=== PATIENT | female | born 1935 | race Caucasian/White ===

== ENCOUNTER 2019-08-20 09:57 | Inpatient (IN) | payer MEDICARE, BC ==
[~2019-08-20] VITALS: Ht 165.1 cm; Wt 76.5 kg
--- NOTE | ~2019-08-20 | HEMODYNAMI ---
PATIENT:RORO SAMAYOA MEDICAL RECORD: [id number] : 37 LOCATION:[facility] ADMISSION DATE: 08/20/19 Generatedon:08/21/201913:44 Patient name: RORO SAMAYOA Patient #: [id number] SSN: [id number] : 1935 Date of study: 08/21/2019 Page: Of Hemodynamic Procedure Report Patient Data Patient Demographics Procedure consent was obtained First Name: RORO Gender: Female Last Name: YAO : 1935 [facility] Initial: L Age: 84 year(s) Patient #: [id number] Race: SSN: [id number] Additional ID: [id number] Contact details Address: [address] [place] [address] State: [place] City: [place] Zip code: [address] Past Medical History Allergies: No known allergies Admission Admission Data Admission Date: 08/20/2019 Admission Time: 11:31 Arrival Date: 08/21/2019 Arrival Time: 0:00 Admit Source: Other Insurance Payor: Medicare Room #: D.CV03 [facility] #: [id number] Height (in.): 65 BSA: 1.78 (m2) Height (cm.): 165.1 BMI: 26.01 (kg/m2) Weight (lbs.): 156.31 Weight (kg.): 70.9 Lab Results Lab Result Date: 08/21/2019 Lab Result Time: 0:00 Biochemistry Name Units Result Min Max BUN mg/dl 16 --(---*)-- 7 18 CK-MB ng/ml 3.4 --(---*)-- 0 3.6 Creatinine mg/dl 1 --(--*-)-- 0.6 1.3 eGFR ml/min 56 *-(----)-- 90 120 NONAFRICAN Troponin l ng/ml 0.269 --(----)-* 0 0.06 CBC Name Units Result Min Max Hematocrit % 34 *-(----)-- 42 54 Hemoglobin g/dl 10.7 *-(----)-- 13.5 17.5 Procedure Procedure Types Cath Procedure Diagnostic Procedure [facility] w/Coronaries FFR/IVUS Intra-Coronary IVUS Initial Cardioversion External PCI Procedure Coronary Stent Coronary Stent Initial x2 Hemochron ACT Test Procedure Description Procedure Date Procedure Date: 08/21/2019 Procedure Start Time: 12:49 Procedure End Time: 13:34 Procedure Staff Name Function Brayden Richardson MD Performing Physician Charmaine Rosas RT Monitor Anju Delgado RT Monitor Selene Dominguez RT Scrub Eloise Taylor RN Nurse Giuseppe Pruitt CRNA Additional personnel Procedure Data Cath Procedure Fluoroscopy Diagnostic fluoroscopy Total fluoroscopy Time: time: 10.4 min 10.4 min Diagnostic fluoroscopy Total fluoroscopy dose: dose: 1198 mGy 1198 mGy Contrast Material Contrast Material Type Amount (ml) Isovue 370 185 Entry Location Entry Primary Successful Side Size Upsize Upsize Entry Closure Succes sful Closure Location (Fr) 1 (Fr) 2 (Fr) Remarks Device Remarks Femoral Right 5 Fr 6 Fr Exoseal artery Short Estimated blood loss: 10 ml Diagnostic catheters Device Type Used For End Catheter Placement MULTIPACK Pigtail 5 Fr Procedure catheter MULTIPACK JL 4.0 5Fr Procedure catheter DIAGNOSTIC MPA-2 5Fr Procedure catheter ([id number]) MULTIPACK JL 4.0 5Fr Procedure catheter MULTIPACK 3DRC 5Fr Procedure catheter Procedure Complications No complications Procedure Medications Medication Administration Route Dosage Oxygen etCO2 Nasal cannula 2 l/min Lidocaine 2% added to field 20 Heparin Flush Bag added to field 2 bags (1000units/500ml NS) Refer to Anesthesia Notes for Sedation Medications 0.9% NaCl I.V. 100 ml/hr Heparin Bolus I.V. 4000 units Integrilin (Bolus I.V. 6.8 ml 2mg/ml) Plavix P.O. 600 mg Hemodynamics Rest BSA: 1.78 (m2) O2 Consumption: Estimated: 168.43 (ml/min) O2 Consumption indexed : Estimated:94.62 (ml/min/m) Heart Rate: 84 (bpm) Snapshots Pre Cath Intra NCS Post Cath Vital Signs Time Heart Resp SPO2 etCO2 NIBP (mmHg) Rhythm Pain Sedation Rate (ipm) (%) (mmHg) Status Level (bpm) 12:41:12 75 14 99 0 152/67(126) A-Fib 0 (11) 10(A) , No pain 12:45:32 86 15 100 0 149/88(119) A-Fib 0 (11) 10(A) , No pain 12:49:44 88 15 99 0 125/78(111) A-Fib 0 (11) 10(A) , No pain 12:54:02 90 10 92 0 117/63(97) A-Fib 0 (11) 10(A) , No pain 12:58:12 82 10 97 0 126/80(100) A-Fib 0 (11) 9(A) , No pain 13:02:22 68 11 98 0 121/70(103) A-Fib 0 (11) 9(A) , No pain 13:06:38 88 11 99 0 112/66(90) A-Fib 0 (11) 9(A) , No pain 13:10:52 70 13 99 0 123/61(92) A-Fib 0 (11) 9(A) , No pain 13:16:12 80 13 99 0 130/70(107) A-Fib 0 (11) 9(A) , No pain 13:20:28 83 13 99 0 135/78(103) A-Fib 0 (11) 9(A) , No pain 13:24:52 54 11 98 0 147/67(122) A-Fib 0 (11) 9(A) , No pain 13:29:22 54 12 99 0 132/62(95) A-Fib 0 (11) 9(A) , No pain 13:33:20 52 12 99 0 No Cuff A-Fib 0 (11) 10(A) , No pain Medications Time Medication Route Dose Verified Delivered Reason Notes Effectiveness by by 12:39:56 Oxygen etCO2 2 Brayden Navas used for Nasal l/min Dylan Taylor landscape contractor cannula 12:40:03 Lidocaine 2% added 20ml Brayden Owen for local to vial Dylan Richardson MD anesthetic field 12:40:11 Heparin Flush added 2 Brayden Owen used for Bag to bags Dylan Richardson MD procedure (1000units/500ml field NS) 12:40:16 Refer to Brayden Chin Anesthesia Notes Dylan Pruitt for Sedation CNA PER DIEM Medications 12:40:44 0.9% NaCl I.V. 100 Brayden Navas Per physician ml/hr Dylan Taylor RN 13:05:43 Heparin Bolus I.V. 4000 Brayden Navas for units Dylan Taylor RN anticoagulation 13:07:02 Integrilin I.V. 6.8 Brayden Navas used for (Bolus 2mg/ml) ml Dylan Taylor RN procedure 13:38:04 Plavix P.O. 600 Brayden Navas for mg Dylan Taylor RN antiplatelet therapy Procedure Log Time Note 11:38:15 Informed consent obtained and on chart 11:41:29 Risk of Mortality: 0.2 11:41:35 Risk of blood transfusion: 4.8 11:41:38 Risk of SANTO: 3.3 11:41:42 Stress Test: no; N/A ? 11:41:46 Lab results completed and on chart. 11:42:48 Lab Result : BUN 16 mg/dl 11:42:48 Lab Result : CK-MB 3.4 ng/ml 11:42:48 Lab Result : Creatinine 1 mg/dl 11:42:48 Lab Result : eGFR NONAFRICAN 56 ml/min 11:42:48 Lab Result : Troponin l 0.269 ng/ml 11:42:48 Lab Result : Hemoglobin 10.7 g/dl 11:42:48 Lab Result : Hematocrit 34 % 11:44:21 Patient Height : 65 inches 11:44:25 Patient Weight : 156.31 lbs 11:44:28 Admit Source: Other 11:44:30 Arrival Date: 08/21/2019 12:00:00 AM 11:44:47 Insurance Payor : Medicare 12:08:53 Procedure Status Urgent Heart Cath (IP). 12:08:54 Time tracking: Regular hours (M-F 7:00 - 5:00) 12:08:58 Plan of Care:Hemodynamics will remain stable., Cardiac rhythm will remain stable., Comfort level will be maintained., Respiratory function will remain adequate., Patient/ family verbilizes understanding of procedure., Procedure tolerated without complication., Recovers from procedure without complications.. 12:09:02 H&P Date Dictated: 08/21/2019 New H&P dictated by physician.. 12:10:05 Charmaine Rosas RT(R) sent for patient. Start room use. 12:26:02 Patient received from CVICU to CCL 1 Alert and oriented. Tansferred to table in Supine position. 12:26:04 Warm blankets applied, and jarred hugger turned on for patient comfort. 12:26:04 Correct patient and procedure confirmed by team. 12:26:05 ECG and BP/O2 sat monitors applied to patient. 12:26:06 Pre-procedure instructions explained to patient. 12:26:07 Pre-op teaching completed and patient verbalized understanding. 12:26:09 Family in waiting room. 12:26:11 Patient NPO since Midnight. 12:26:17 Patient allergic to No known allergies 12:28:54 Is the patient allergic to Iodine/contrast media? No. 12:28:57 Was the patient premedicated? No 12:29:01 Is patient on blood thinner?Yes 12:30:09 ACC The patient was administered the following blood thiners within the last 24 hours: Coumadin 12:30:14 Patient diabetic? No. 12:30:18 If diabetic: On Metformin? N/A 12:30:21 Patient not . Patient is over age 55. 12:30:23 ----Pre-sedation anethsthesia assessment.---- 12:30:27 Previous problem with sedation/anesthesia? No ? 12:30:28 Giuseppe Pruitt CRNA present and monitoring patient for TIVA. 12:30:28 Snore? No 12:30:31 Deviated septum? No 12:30:33 Opens mouth fully? Yes 12:30:34 Sleep apnea? No 12:30:34 Sticks out tongue? Yes 12:30:36 Airway obstruction? No ? 12:30:41 Dentures? Yes in tight 12:31:14 IV left wrist D/C'd due to infiltration. 12:31:55 IV started by Giuseppe Pruitt CRNA inright hand with a 22 gauge IV catheter with 0.9% NaCl at KVO. 12:33:39 Patient pain scale 0/10 ?. 12:33:44 Alarms reviewed by R. N. 12:33:44 Sharps counted by scrub and verified by R.N. 12:39:45 Vital chart was started 12:39:56 Oxygen 2 l/min etCO2 Nasal cannula was administered by Eloise Taylor RN; used for procedure; Verbal order read back and verified. 12:40:03 Lidocaine 2% 20ml vial added to field was administered by Brayden Richardson MD; for local anesthetic; Verbal order read back and verified. 12:40:11 Heparin Flush Bag (1000units/500ml NS) 2 bags added to field was administered by Brayden Richardson MD; used for procedure; Verbal order read back and verified. 12:40:16 Refer to Anesthesia Notes for Sedation Medications was administered by Giuseppe Pruitt CRNA; ; Verbal order read back and verified. 12:40:20 PT HAS NOTICEABLE SKIN TEAR ON THE RT GROIN AREA PRIPR TO PROCEDURE 12:40:42 Right groin area was prepped with chlora-prep and draped in sterile fashion 12:40:44 0.9% NaCl 100 ml/hr I.V. was administered by Eloise Taylor RN; Per physician; Verbal order read back and verified. 12:41:36 Pre procedure: right dorsailis pedis pulse 1+ Palpable, but thready & weak; easily obliterated 12:41:49 Full Disclosure recording started 12:41:57 Use device set Femoral Dx 12:42:00 ACIST Syringe (50160) opened to sterile field. 12:42:04 Bag Decanter (2002S) opened to sterile field. 12:42:14 Medline Cath Pack ([id number]) opened to sterile field. 12:42:15 ACIST Hand Control (31750) opened to sterile field. 12:42:16 ACIST Manifold (45275) opened to sterile field. 12:42:18 Tegaderm 4 x 4 (1626W) opened to sterile field. 12:42:20 SHEATH 5FR [place] (TYH145) opened to sterile field. 12:42:21 EMERALD Guide Wire (781-113) opened to sterile field. 12:42:43 Rhythm: sinus rhythm 12:44:48 Baseline sample Acquired. 12:48:00 --------ALL STOP TIME OUT------ 12:48:00 Final Timeout: patient, procedure, and site verified with staff and physician. All members of the team are in agreement. 12:48:03 Right groin site verified by team. 12:48:07 Fire Safety Assessment: A--An alcohol-based skin anteseptic being used preoperatively., C--Open oxygen or nitrous oxide is being used., D--An ESU, laser, or fiber-optic light is being used. 12:48:12 Physical assessment completed. ASA score P 2 - A patient with mild systemic disease as per Brayden Richardson MD. 12:48:17 3a) 45-59 Moderately reduced kidney function. 12:48:21 Maximum allowable contrast dose (3.7 X eGFR X 0.75)155 ml. 12:48:26 Sedation plan: IV Moderate Sedation Medication:Versed, Fentanyl 12:49:29 Procedure started. 12:49:49 Local anesthetic to right femoral artery with Lidocaine 2% by Brayden Richardson MD.INITIAL ACCESS ONLY 12:50:34 A 5 Fr sheath was inserted into the Right Femoral artery 12:51:12 A MULTIPACK Pigtail 5 Fr catheter was advanced over the wire and used for Procedure. 12:51:46 LV gram done using ROMERO 12:51:50 Injector settings: Ml/sec: 5, Volume: 15, 12:52:05 EF : 50 % 12:52:17 Catheter removed. 12:52:29 A MULTIPACK JL 4.0 5Fr catheter was advanced over the wire and used for Procedure. 12:53:32 Catheter removed. 12:54:26 JL4 REMOVED AND 6F ARROW ADVANCED DUE TO PTS ANATOMY. 12:54:39 SHEATH 6FR ARROW 45cm (CL-43050) opened to sterile field. 12:54:53 Sheath upsized to a 6 Fr Short. 12:55:39 Catheter removed. 12:56:43 A DIAGNOSTIC MPA-2 5Fr catheter ([id number]) was advanced over the wire and used for Procedure. 12:57:18 Catheter removed. 12:57:55 UNABLE TO ADVANCE ARROW PROCEEDING WITH DESTINATION. 12:58:08 SHEATH 6FR Destination (RSR01) opened to sterile field. 12:58:25 GLIDE WIRE Super Stiff Angled 260cm (HQ4084) opened to sterile field. 12:59:13 GLIDEWIRE TO USED TO ADVANCE DESTINATION. 12:59:41 A MULTIPACK JL 4.0 5Fr catheter was advanced over the wire and used for Procedure. 13:00:26 LCA angiography performed. 13:01:30 Catheter removed. 13:01:38 A MULTIPACK 3DRC 5Fr catheter was advanced over the wire and used for Procedure. 13:03:00 RCA angiography performed. 13:03:34 Catheter removed. 13:03:35 Proceeding to intervention. 13:04:00 GUIDE 6FR AR 1.0 SH catheter ([id number]) opened to sterile field. 13:04:00 CHOICE PT Extra Support 182cm wire ([id number]) opened to sterile field. 13:04:01 INFLATOR Merit [place] (DB4194) opened to sterile field. 13:04:31 Pre PCI Site: [place] mRCA has 99% stenosis. 13:04:39 6 Fr AR 1 SH guide catheter was inserted over the wire 13:04:46 CHOICE ES 182 wire advanced. 13:05:43 Heparin Bolus 4000 units I.V. was administered by Eloise Taylor RN; for anticoagulation; Verbal order read back and verified. 13:06:12 Wire advanced across lesion. 13:07:02 Integrilin (Bolus 2mg/ml) 6.8 ml I.V. was administered by Eloise Taylor RN; used for procedure; Verbal order read back and verified. 13:08:38 Inflate balloon Inflation number: 1 A EUPHORA 3.0 x 20 Balloon ([id number]) was prepped and advanced across the Mid RCA , then inflated to 17 YANELI for 0:00 (min:sec) . 13:08:50 Inflation number: 2 The EUPHORA 3.0 x 20 Balloon ([id number]) was reinflated across the Mid RCA , to 17 YANELI for 0:00 (min:sec) . 13:09:11 Balloon removed over the wire. 13:11:02 Place stent Inflation Number: 3 A PALOMO RX 3.0 x 38 stent ([id number]) was prepped and advanced across the Mid RCA . The stent was deployed at 21 YANELI for 0:00 (min:sec) . 13:11:24 Stent catheter was removed intact over wire. 13:12:59 Place stent Inflation Number: 1 A PALOMO RX 3.5 x 26 stent ([id number]) was prepped and advanced across the Prox RCA . The stent was deployed at 17 YANELI for 0:00 (min:sec) . 13:13:20 Stent catheter was removed intact over wire. 13:13:38 Wire removed. 13:13:39 Guide catheter removed. 13:14:24 GUIDE 6FR XBLAD 3.5 SH catheter ([id number]) opened to sterile field. 13:14:25 [place] IVUS Catheter (82572W) opened to sterile field. 13:14:47 6 Fr XBLAD 3.5 SH guide catheter was inserted over the wire 13:15:08 CHOICE ES 182 wire advanced. 13:15:19 Wire advanced across lesion. 13:15:35 IVUS catheter advanced over wire. 13:15:39 IVUS pass to LMCA lesion performed. 13:18:15 IVUS catheter removed over wire. 13:18:23 IVUS measurement 69 %. 13:19:31 Place stent Inflation Number: 1 A PALOMO RX 3.5 x 12 stent ([id number]) was prepped and advanced across the LMCA . The stent was deployed at 17 YANELI for 0:00 (min:sec) . 13:19:58 Stent catheter was removed intact over wire. 13:19:59 Wire removed. 13:19:59 Guide catheter removed. 13:20:12 LONG SHEATH CHANGE FOR SHORT SHEATH 13:20:27 Quick Combo opened to sterile field. 13:20:38 ------Cardioversion------ 13:20:39 Quick combo pads placed on patients chest and back. 13:20:43 Defibrillator synced and charged to 275 Joules. 13:22:19 Shock delivered. 13:22:35 Patient cardioverted to sinus bradycardia. 13:22:56 EXOSEAL 6Fr (EX600) opened to sterile field. 13:23:03 Sheath removed intact; hemostasis achieved with Exoseal to the Right Femoral artery. 13:23:19 Fluoroscopy time 10.40 minutes. 13:23:24 Flurop Dose total: 1198 13:23:24 Fluoroscopy dose: 1198 mGy 13:23:29 Dose Area Product 03266 mGy/cm. 13:23:31 Procedure ended.(Physican Out) 13:23:48 Contrast amount:Isovue 370 185ml. 13:23:53 Maximum allowable dose exceeded? Yes. 13:24:05 Sharps counted by scrub and verified by R.N. 13:24:20 ACT drawn and resulted at 332 seconds. (normal therapeutic range 180-240 seconds). 13:24:31 Post-op/insertion site Right Femoral artery dressed using a 4 x 4 and Tegaderm. 13:24:37 Post right femoral artery:stable, soft, clean and dry 13:25:24 Post Procedure Pulses reassessed and unchanged 13:25:29 Post procedure: right dorsailis pedis pulse 1+ Palpable, but thready & weak; easily obliterated. 13:25:33 Post-procedure physical assessment completed. ASA score P 2 - A patient with mild systemic disease as per Brayden Richardson MD. 13:25:39 Post procedure rhythm: sinus bradycardia 13::43 Estimated blood loss: 10 ml 13:25:45 Post procedure instruction explained to patient.Patient verbalizes understanding. 13:25:47 Patient needs reinforcement of post procedure teaching. 13:28:18 LHC Findings: MVD- PCI performed (see procedure note) 13:28:23 Procedure Complication : No complications 13:28:28 Operative report dictated upon procedure completion. 13:28:30 See physician's report for complete and final results. 13:28:34 Report given to CVICU. 13:28:38 Patient transfered to CVICU with Bed. 13:30:21 Procedure type changed to Cath procedure, Diagnostic procedure, LHC, LHC w/Coronaries, FFR/IVUS, Intra-Coronary IVUS Initial, Cardioversion External, PCI procedure, Coronary Stent, Coronary Stent Initial x2, Hemochron ACT Test 13:34:49 Procedure and supply charges have been captured, reviewed, submitted and are correct. 13:34:53 FEMSTOP Gold (P01615) opened to sterile field. 13:34:55 Vital chart was stopped 13:34:58 Procedure ended. 13:34:58 Full Disclosure recording stopped 13:34:59 Femstop placed over the right femoral artery at 175 mmHg. Hemostasis achieved. 13:38:04 Plavix 600 mg P.O. was administered by Eloise Taylor RN; for antiplatelet therapy; Verbal order read back and verified. 13:41:54 ACC-PCI Only Patient was given prescriptions, or instructed by Brayden Richardson MD to start/continue the following medications upon discharge: Plavix 13:43:31 End room use (Document Last) 13:43:44 End room use (Document Last) 13:44:05 End room use (Document Last) Intervention Summary Intervention Notes Time ActionType Lesion and Equipment Used Action# Pressure Duration Attributes 13:08:38 Inflate Mid RCA EUPHORA 3.0 x 1 17 00:00 balloon 20 Balloon ([id number]) 13:08:50 Reinflate Mid RCA EUPHORA 3.0 x 2 17 00:00 balloon 20 Balloon ([id number]) 13:11:02 Place stent Mid RCA PALOMO RX 3.0 x 3 21 00:00 38 stent ([id number]) 13:12:59 Place stent Prox RCA PALOMO RX 3.5 x 1 17 00:00 26 stent ([id number]) 13:19:31 Place stent LMCA PALOMO RX 3.5 x 1 17 00:00 12 stent ([id number]) Device Usage Item Name Manufacture Quantity Catalog Number Hospital Part Current M inimal Lot# / Charge Number Stock Stock Serial# Code ACIST Syringe Acist 1 07449 039652 925834 462836 2 0 (63496) Medical Systems Inc Bag Decanter Microtek 1 2001S 011973 31240 227415 5 (2001S) Medical Inc. Medline Cath Medline 1 [id number] 423391 64143 096470 5 Pack ([id number]) ACIST Hand Acist 1 98912 661926 668617 765214 5 Control Medical (97470) Systems Inc ACIST Manifold Acist 1 22818 579051 365360 451036 5 (45580) Medical Systems Inc Tegaderm 4 x 4 3M 1 1626W 573145 893403 106382 5 (1626W) SHEATH 5FR Terumo 1 ZTJ261 345841 277841 201560 5 [place] (BNS965) EMERALD Guide Cardinal 1 502-455 763182 337577 909550 5 Wire (502-455) Health MULTIPACK Cardinal 1 875547 5 Pigtail 5 Fr Health catheter MULTIPACK JL Cardinal 1 194479 5 4.0 5Fr Health catheter SHEATH 6FR Teleflex 1 CL-11050 586034 557435 777599 5 ARROW 45cm (CL-92499) DIAGNOSTIC Cardinal 1 [id number] 658206 823371 726014 5 MPA-2 5Fr Health catheter (864218M) SHEATH 6FR Terumo 1 RSR01 462875 46543 503914 5 Destination (RSR01) GLIDE WIRE Terumo 1 YA7245 879462 375513 873707 5 Super Stiff Angled 260cm (LP7483) MULTIPACK 3DRC Cardinal 1 813196 5 5Fr catheter Health GUIDE 6FR AR Medtronic 1 [id number] 276573 40311 384060 1 1.0 SH catheter ([id number]) CHOICE PT [place] 1 [id number] 662481 875164 852733 5 Extra Support Scientific 182cm wire ([id number]) INFLATOR Merit Merit 1 ZX3931 247882 930012 985646 1 5 [facility] (DU3863) EUPHORA 3.0 x Medtronic 1 [id number] 031791 789118 431560 5 [id number] 20 Balloon ([id number]) PALOMO RX 3.0 x Medtronic 1 [id number] 026246 9775046 576413 5 [id number] 38 stent ([id number]) PALOMO RX 3.5 x Medtronic 1 [id number] 230314 4043431 728891 5 [id number] 26 stent ([id number]) GUIDE 6FR Cardinal 1 [id number] 973029 095135 932918 3 XBLAD 3.5 SH Health catheter (92352902) [place] 1 [id number] 042961 758843 794953 8 [place] IVUS Catheter (21264L) PALOMO RX 3.5 x Medtronic 1 [id number] 680645 7738646 015069 5 [id number] 12 stent ([id number]) Silatronix 1 26510-911131 823883 554626 592128 5 EXOSEAL 6Fr Cardinal 1 EX600 644510 779546 291269 1 0 (EX600) Health FEMSTOP Gold [facility] [place] 1 A47689 037019 211757 655998 5 ([id number]) Signature Audit [place] Stage Time Signature Unsigned Intra-Procedure 08/21/2019 Anju Delgado 1:43:44 PM RT(R) Intra-Procedure 08/21/2019 Eloise Taylor RN 1:44:05 PM Intra-Procedure 08/21/2019 Brayden Richardson 1:44:19 PM [place] [address] [place] [address]
--- NOTE | ~2019-08-20 | EC ---
PATIENT:RORO SAMAYOA DATE OF SERVICE: 08/20/19 SEX: F MEDICAL RECORD: [id number] DATE OF : 37 LOCATION:[place] [address] AGE OF PATIENT: 84 ADMISSION DATE: 08/20/19 REFERRING PHYSICIAN: INTERPRETING PHYSICIAN: RACHELL RICHARDSON MD ECHOCARDIOGRAM REPORT ECHO CHARGES 4 ECHO COMPLETE Date: 08/20/19 CLINICAL DIAGNOSIS: ATRIAL FIB HX HTN ECHOCARDIOGRAPHIC MEASUREMENTS (adult normal given) AC root (d.<3.7cm) 3.3 cm LV Septum d (<1.2 cm> 1.5 cm Valve Excursion 1.4 cm LV Septum (systole) 1.9 cm Left Atria (s.<4.0cm> 5.3 cm LVPW d(<1.2cm) 1.7 cm RV (d.<2.3cm) 4.1 cm LVPW (sytole) 1.9 cm LV diastole(<5.6CM) 5.1 cm MV E-F(>70mm/sec) cm LV systole 3.6 cm LVOT Diameter 1.9 cm MV exc.(>10mm) 1.8 cm Est.ejection fraction (50-75%) % DOPPLER: LVIT cm/sec A 52.0 cm/sec E 187.0 cm/sec LA cm/sec RVSP 32 mmHg LVOT 165 cm/sec AOP1/2T m/s Asc. Ao 247 cm/sec RVOT 100 cm/sec RA cm/sec PA 146 cm/sec AV Gradient Peak 24.32mmHg AV Mean 15.95mmHg AV Area 1.9 cm MV Gradient Peak 13.05mmHg MV Mean 4.32 mmHg MV Area cm COMMENTS: Furniture Sprayer: 2 CARMELINA KUMAR [employer] Shift Supervisor: 1 Dr. Richardson TAPE# PACS Pericardial Effusion N DATE OF SERVICE: FINDINGS: 1. Left ventricular chamber size is within normal limits. Left ventricular systolic function is preserved at 55%. 2. Left atrium is enlarged at 5.3 cm. Right atrium and right ventricular chamber sizes are as well mildly dilated. 3. Valvular structures: Aortic valve demonstrates mild calcific aortic stenosis, valve area calculates 1.9 cm-squared and there is a gradient of 24 mm across the valve. The remaining valvular structures have normal structure and ECHOCARDIOGRAM REPORT [id number] RORO SAMAYOA motion. 4. Doppler interrogation elsewise reveals severe mitral regurgitation, moderate tricuspid regurgitation, no other valvular insufficiency or stenosis. Pulmonary systolic pressure estimated at 32 mmHg. 5. No evidence of pericardial effusion or left ventricular thrombus. TRANSINT:[id number] Voice Confirmation ID: [id number] DOCUMENT ID: [id number] RACHELL RICHARDSON MD CC: [id number] DICTATION DATE: 08/21/19 1338 WASHER HAND: 08/21/19 2210 ADM IN [place] [address] [place] [address]
--- NOTE | ~2019-08-20 | HP ---
PATIENT: RORO DAMON MEDICAL RECORD: [id number] ACCOUNT: [id number] LOCATION:[address] : 37 ADMISSION DATE: 08/20/19 PCP: TYSON DESAI HISTORY AND PHYSICAL EXAMINATION DIAGNOSES: 1. Non-Q-wave myocardial infarction. 2. Coronary artery disease. 3. New-onset atrial fibrillation. 4. Shortness breath, dyspnea on exertion. 5. Valvular heart disease, aortic valve replacement. 6. Coumadin anticoagulation. 7. Hypertension. HISTORY OF PRESENT ILLNESS: Mrs. Damon presents with shortness of breath and chest pressure. She had this on Saturday, only lasted approximately half hour, but again she had this morning, it lasted longer, but went away. She had palpitation, tachycardia and shortness of breath, dyspnea on exertion with chest pressure today starting at 2:30 in the morning that was very bad. She went to [facility], was found to be in new-onset atrial fibrillation. They attempted cardioversion, she did not convert. She was sent here for higher level of care, troponin is now positive. She is not having palpitations or symptoms at this time of chest pressure. She is having the continued shortness of breath. She is in atrial fibrillation. She was initially with heart rates in the 130 to 150 range. She is now on a Cardizem drip and her heart rate is in the 90 range. Her EKG is with no acute ST-T abnormalities. Her INR is 4 from the Coumadin. PHYSICAL EXAMINATION: CONSTITUTIONAL/GENERAL APPEARANCE: Well nourished, well developed, appears stated age. EYES: Lids and conjunctivae noninjected. No discharge. No pallor. ENT: Lips within normal limit. No cyanosis. No pallor. NECK: Carotid arteries, bilateral normal upstroke. No bruits. No thrills. No jugular venous pressure or distention. CERVICAL LYMPH NODES: Nontender. Nonenlarged. THYROID: Not enlarged. No nodules. CARDIOVASCULAR: Precordial exam, nondisplaced. No heaves or pericardial thrills. Rate and rhythm, regular. Heart sounds, normal S1, normal S2. No S3, no gallop, no rub. Systolic murmur, not heard. Diastolic murmur, not heard. RESPIRATORY: Respiratory effort, unlabored. Normal curvature. No thoracic deformity. No chest wall tenderness. Percussion, resonant. Auscultation, clear. No wheezes, no rales, no rhonchi. ABDOMEN: Soft, nondistended, nontender. No abdominal pain, no vomiting and normal appetite. MUSCULOSKELETAL: No joint tenderness, normal gait, normal tone. SKIN: Warm and dry. OVERALL IMPRESSION: Non-Q-wave myocardial infarction, new-onset atrial fibrillation. At this time, we will reverse her Coumadin with vitamin K and FFP, recheck an INR in the morning. Proceed with coronary angiography and cardioversion. TRANSINT:[id number] Voice Confirmation ID: [id number] DOCUMENT ID: [id number] HISTORY AND PHYSICAL [id number] RORO DAMON JEFFREY MD CC: [id number] DICTATION DATE: 08/20/19 1206 LOCAL COMPANY TANKER DRIVER: 08/20/19 1337 ADM IN [facility] [address] [place] [address]
--- NOTE | ~2019-08-20 | DS ---
PATIENT:RORO DAMON :37 MEDICAL RECORD: [id number] DISCHARGE SUMMARY ADMISSION DATE: 08/20/19 DISCHARGE DATE: 08/22/19 DATE OF DISCHARGE: 08/22/2019 DISCHARGE DIAGNOSES: 1. Non-Q-wave myocardial infarction. 2. Percutaneous transluminal coronary angioplasty and stent of the right coronary artery and left main this admission. 3. Paroxysmal atrial fibrillation. 4. Aortic valve replacement. HOSPITAL COURSE: Ms. Damon presents with new-onset atrial fibrillation and angina, non-Q-wave myocardial infarction, underwent cardiac catheterization revealing significant disease of the left main and RCA, underwent successful PTCA and stent of both territories, was discharged home with the addition of Plavix and amiodarone to her medical regimen. She was in sinus rhythm when discharged. Will follow up with [facility] in 1 month and she will resume her Coumadin as she was previously on. TRANSINT:[id number] Voice Confirmation ID: [id number] DOCUMENT ID: [id number] RACHELL PUGH MD CC: [id number] DICTATION DATE: 08/22/19 1028 COACH MECHANIC: 08/22/19 1626 DIS IN 08/22/[address] [facility] [address] [place] [address]
--- NOTE | ~2019-08-20 | OP ---
PATIENT NAME: RORO SAMAYOA MEDICAL RECORD: [id number] :37 LOCATION:D.CVI D.CV03 ADMISSION DATE:08/20/19 SURGEON: RACHELL PUGH MD DATE OF OPERATION: 08/21/2019 PROCEDURES: 1. DC cardioversion. 2. PTCA and stent left main. 3. PTCA and stent RCA. 4. Intravascular ultrasound, left main. 5. Left heart catheterization. 6. Selective coronary angiography. 7. Left ventriculogram. INDICATION: Non-Q-wave myocardial infarction. DESCRIPTION OF PROCEDURE: After informed consent was obtained and after a detailed description of the risks, benefits as well as alternative therapies, the patient elected to proceed with angiogram and angioplasty. The right femoral area was prepped and draped in normal sterile fashion. Right femoral artery was cannulated via modified Seldinger technique with placement of 6-Icelandic sheath. All catheters exchanged through this sheath. FINDINGS: Left ventriculogram performed in standard 30-degree ROMERO view, reveals good cardiac wall motion, ejection fraction 50% to 55%. SELECTIVE CORONARY ANGIOGRAPHY: 1. Left main is with greater than 85% stenosis confirmed by intravascular ultrasound. 2. Left anterior descending has [id number] irregularities but no flow-limiting stenosis. 3. The left circumflex has [id number]-[id number] irregularities but no flow-limiting stenosis. 4. Right coronary has 80% stenosis at the ostium followed by 95% stenosis in the mid vessel. PTCA AND STENT OF THE RCA: Stents used were 3.0 x 38 and 3.5 x 26, both Ameya stents. Result was 0% residual stenosis. PTCA AND STENT OF THE LEFT MAIN: The stent used was a 3.5 x 12 mm Madison. Result was 0% residual stenosis. IV conscious sedation was per anesthesia. Continuous heart rate, O2 saturation, blood pressure monitoring all undertaken, all of which remains stable. She received 1 shock at 275 joules restoring sinus rhythm. OVERALL IMPRESSION: Successful percutaneous transluminal coronary angioplasty and stent of RCA and left main and successful DC cardioversion. TRANSINT:[id number] Voice Confirmation ID: [id number] DOCUMENT ID: [id number] OPERATIVE REPORT [id number] RORO SAMAYOA RACHELL PUGH MD CC: [id number] DICTATION DATE: 08/21/19 1331 NETWORK SUPPORT TECHNICIAN: 08/21/19 2232 ADM IN [facility] [address] [facility] [place] [address]
--- NOTE | 2019-08-20 10:07 | NUR ---
PIV X 2 STARTED PER [facility].
[2019-08-20] MEDS ORDERED: HYDROCODON-ACE1 EA10 PO (10:09)
[2019-08-20] MEDS ORDERED: TIROSINT25 MCG PO (10:09)
[2019-08-20] MEDS ORDERED: VITAMIN C500 M1 PO ×2 (10:09→22:44)
[2019-08-20] MEDS ORDERED: COZAAR100 MG PO ×2 (10:10→22:42)
[2019-08-20] MEDS ORDERED: MULTI-DAY VITAM1 TAB PO ×2 (10:10→22:46)
[2019-08-20] MEDS ORDERED: CHONDROITIN/GLUCOSAM (10:11)
[2019-08-20] MEDS ORDERED: OS-CAL500 MG PO (10:12)
[2019-08-20] MEDS ORDERED: LIPITOR40 MG PO (10:13)
[2019-08-20] MEDS ORDERED: COUMADIN7.5 MG PO ×2 (10:13→22:39)
[2019-08-20] MEDS ORDERED: COUMADIN5 MG PO ×2 (10:14→22:38)
[2019-08-20] MEDS ORDERED: VITAMIN D31000 UNIT PO ×2 (10:14→22:45)
[2019-08-20] MEDS ORDERED: ZOLOFT100 MG PO ×2 (10:14→22:42)
[2019-08-20] MEDS ORDERED: FISH OIL 1,0001 CA1 PO ×2 (10:14→22:44)
[2019-08-20] MEDS ORDERED: MIRALAX17 GM PO (10:15)
[2019-08-20] MEDS ORDERED: NITROQUICK0.4 MG SL (10:15)
[2019-08-20] MEDS ORDERED: THERALITH XR T1 EACH PO (10:15)
[2019-08-20] MEDS ORDERED: CILOSTAZOL50 MG (10:16)
[2019-08-20 10:32] VITALS: BP 143/90
[2019-08-20 11:00] VITALS: BP 146/92
[2019-08-20 11:27] LABS: CALC OSMOLALITY 284 mosm/kg (275-300); CALCIUM 9.1 mg/dL (8.5-10.1); CARBON DIOXIDE 27.8 mmol/L (21.0-32.0); CHLORIDE - SERUM 106 mmol/L (98-107); GLUCOSE 154 mg/dL (74-106); POTASSIUM - SERUM 4.1 mmol/L (3.5-5.1); SODIUM 141 mmol/L (136-145); UREA NITROGEN 16 mg/dL (7-18); eGFR NON AFRICAN AMERICAN 56 mL/min (90-120)
[2019-08-20 11:28] LABS: INR 3.14 (0.85-1.17); PROTIME 31.5 SECONDS (11.6-15.0)
[2019-08-20 11:29] LABS: BASOPHILS 0.2 % (0-2); EOSINOPHILS 0 % (0-7); HEMOGLOBIN 10.7 g/dL (12-16); IMMATURE GRANULOCYTES 0.2 % (0-5); LYMPHOCYTES 4.7 % (15-50); MCH 29.6 pg (26.0-34.0); MCHC 31.5 g/dL (31.0-37.0); MCV 94.2 fL (80.0-100.0); MEAN PLATELET VOLUME 9.4 fL (7.4-10.4); MONOCYTES 1.4 % (2-11); NEUTROPHILS 93.5 % (40-80); PLATELET COUNT 202 10x3/uL (130-400); RBC 3.61 10x6/uL (4.00-5.40); RDW 13.8 % (11.5-14.5); WBC 6.6 10x3/uL (4.8-10.8)
[2019-08-20 11:35] VITALS: BP 156/97
[2019-08-20 11:48] LABS: ALBUMIN 3.5 g/dL (3.4-5.0); ALKALINE PHOSPHATASE 69 U/L (46-116); ALT (SGPT) 110 U/L (10-68); BILIRUBIN - TOTAL 0.59 mg/dL (0.2-1.3); CKMB 3.4 U/L (0.0-3.6); CREATINE KINASE 50 UL (21-215); PROTEIN - SERUM 6.9 g/dL (6.4-8.2); T4 THYROXIN - FREE 1.05 ng/dL (0.76-1.46); THYROID STIMULATING HORMONE 0.55 uIU/mL (0.36-3.74)
[2019-08-20 11:50] LABS: TROPONIN-I 0.269 ng/mL (0.000-0.060)
--- NOTE | 2019-08-20 11:50 | NUR ---
LAURITA AND DR. PUGH INFORMED OF ELEVATED TROPONIN 0.269
--- NOTE | 2019-08-20 12:55 | MORECARE ---
CASE MANAGEMENT DISCHARGE SUMMARY PATIENT: RORO SAMAYOA UNIT: [id number] ADM DATE: 08/20/19 AGE: 84 : 37 SEX: F ROOM/BED: D.2390 AUTHOR: COTY,DOC PHYSICIAN: REFERRING PHYSICIAN: RACHELL PUGH MD DATE OF SERVICE: 08/20/19 Discharge Plan Patient Name: RORO SAMAYOA Facility: [facility]:[place] : 1935 Planned Disposition: Home Anticipated Discharge Date: 08/24/19 Discharge Date: Expected LOS: 4 Initial Reviewer: [email or web address] Initial Review Date: 08/20/2019 Generated: 08/20/19 1:54 pm DCP- Discharge Planning Updated by [email or web address]: Desi Gonzalez on 08/20/19 11:[address] DC PLAN: Return home alone w/ resumption of [facility]. ANTICIPATED DC NEEDS: Resumption of [facility]. CM met with patient to complete initial dc planning assessment. CM educated patient on the CM role and verbal consent given by patient to complete assessment. CM verified patient's address, phone number, and emergency contact phone numbers. Patient lives at home alone. Patient currently has [facility] [place] and wishes to resume at discharge. JULIO CÉSAR form signed by patient for resumption of [facility]. Signed form placed in chart and signed form given to patient. At discharge patient plans to return and feels this is a safe discharge. Patient denied further known discharge needs at this time. Transportation provider at discharge will be her daughter. CM will continue to follow and will assist as needed with dc plans/needs. Desi Gonzalez RN, [facility] DCPIA - Discharge Planning Initial Assessment Updated by [email or web address]: Desi Gonzalez on 08/20/19 12:52 pm * Is the patient Alert and Oriented? Yes * How many steps to enter\exit or inside your home? * PCP Dr. White in [place] * Pharmacy [facility] [place] * Preadmission Environment Home Alone * ADLs Independent * Equipment Cane Glucometer Rolling Walker * Other Equipment BP machine INR Machine * Verbal permission to speak to the caregivers and representatives has been obtained from the patient. Yes * Community resources currently utilized Home Health * Please name any agencies selected above. [facility] [place] * Additional services required to return to the preadmission environment? No * Can the patient safely return to the preadmission environment? Yes * Has this patient been hospitalized within the prior 30 days at any hospital? No Patient Name: RORO SAMAYOA Page [id number] at 1255 All edits/amendments must be made on the electronic document DICTATION DATE: 08/20/19 125 HOBBING MACHINE OPERATOR: MIGUELITO 08/20/19 1254 RPT#: [id number] DC DATE: STATUS: ADM IN [facility] [address] [place] [address] END OF REPORT
--- NOTE | 2019-08-20 13:11 | NUR ---
RECIVED FROM ER. TO ROOM 2124. ADMIT ASSESSMENT PER RN
[2019-08-20 13:42] VITALS: BP 157/92; Ht 165.1 cm; Wt 76.5 kg
--- NOTE | 2019-08-20 13:55 | NUR ---
ASSESSMENT COMPLETE PT AAOX4 RESP SOB SKIN W/D COLOR WNL TELEMETRY UCAF RATE 105 SALINE LOCK INTACT TO LFA WITH OCCLUSIVE DRSG SITE FREE OF REDNESS OR EDEMA
[2019-08-20 14:04] VITALS: BP 157/92
[2019-08-20 17:43] VITALS: BP 150/84
--- NOTE | 2019-08-20 20:08 | NUR ---
SPOKE WITH DR PUGH, ORDER CLARIFICATION, GIVEN PT BOTH IV AMIODARONE AND PO AMIODERONE.
--- NOTE | 2019-08-20 20:29 | NUR ---
SPOKE WITH THE BLOOD BANK TO SEE IF PTS OTHER 2 UNITS OF FFP WERE READY TO BE GIVEN, THIS NURSE WAS INFORMED THAT THE BLOOD BANK WAS TOLD THAT THE DAY SHIFT NURSE WOULD BE CALLING THEM BACK TO LET THEM KNOW IF THEY STILL NEEDED THE OTHER 2 UNITS AND THAT THEY HAD NOT BEEN NOTIFIED YET. THIS NURSE INFORMED THEM THAT YES, I HAD JUST SPOKE WITH DR PUGH AND DR PUGH WANTS ALL 4 UNITS GIVEN. BB, THEN STATED THAT THEY WILL GET THE OTHER 2 UNITS OF FFP UNTHAWED.
--- NOTE | 2019-08-20 20:47 | NUR ---
IV TO RIGHT WIRST LEAKING, IV CATH REMOVED, TIP INTACT. PIV RESITED TO INNER LEFT FOREARM, 20 GUAGE, SECOND ATTEMPT. PT TOLERATED WELL.
--- NOTE | 2019-08-20 21:22 | NUR ---
HS MEDS GIVEN WITH FRESH ICE WATER. OFFERED PT BATH, PT DECLINED AT THIS TIME, PT STATED THAT SHE WANTS TO WAIT UNTIL ITS TIME TO GET READY FOR SURGERY.
[2019-08-20] MEDS ORDERED: SENNA LAXATIVE8.6 MG PO (21:27)
--- NOTE | 2019-08-20 22:20 | NUR ---
3RD UNIT OF FFP INFUSING, ( 1ST UNIT TO BE HUNG BY THIS NURSE, AFTER 2 HAD BEEN GIVEN PREVIOUSLY ON DAY SHIFT) VITALS STABLE.
[2019-08-20] MEDS ORDERED: NORMODYNE / TR100 MG PO (22:27)
[2019-08-20] MEDS ORDERED: SYNTHROID25 MCG PO (22:39)
[2019-08-20] MEDS ORDERED: LIPITOR10 MG PO (22:41)
[2019-08-20] MEDS ORDERED: TRAZODONE HCL150 MG PO (22:43)
[2019-08-20] MEDS ORDERED: CALCIUM 600 +1 EAC3 PO (22:46)
[2019-08-20] MEDS ORDERED: GLUCOSAMINE HC500 MG PO (22:46)
--- NOTE | 2019-08-20 22:50 | NUR ---
FOURTH UNIT FFP INFUSING ( 2ND OF 2 UNITS HUNG BY THIS NURSE). BP 158/90, ELEVATED BP CALLED TO DR PUGH, ORDERS GIVEN TO RESTART PTS HOME DOSE OF COREG AND LABETALOL.
--- NOTE | 2019-08-20 23:38 | NUR ---
PTS DAUGHTER AT NURSES DESK, PT SOB, RESPERATIONS LABORED. 02 SATS 82% ON 4 LITERS. RAPID RESPONSE CALLED.
--- NOTE | 2019-08-20 23:50 | NUR ---
DR. PUGH NOTIFIED OF PATIENT CONDITION. NEW ORDERS RECEIVED TO MOVE TO ICU, GIVEN LASIX 60MG IVP, AND A/A UDRAFT IF NEEDED.
[2019-08-21] VITALS (55 sets, daily range): BP systolic 111–193; BP diastolic 38–171
--- NOTE | 2019-08-21 00:16 | NUR ---
REPORT GIVEN TO JONELLE LAZCANO, PT TRANSFERRED BY BED TO ICU.
--- NOTE | 2019-08-21 00:30 | NUR ---
RECEIVED PT FROM [address] STAFF. PT ALERT AND ORIENTED. AFIB ON MONITOR, RATE IN 120'S. PT SOB, RR LABORED, STATES SHE IS HAVING DIFFICULTY BREATHING. O2 SAT 100 ON 9 L HIGH FLOW NC. B/P 166/112. WILL MONITOR.
--- NOTE | 2019-08-21 01:35 | NUR ---
PT RECIEVED VIA BED FROM ICU. AWAKE AND ALERT. AUDIBLE WHEEZING. VOIDED PRIOR TO GETTING INTO BED. MONITOR EQUIP ESTABLISHED. CONTROLLED AFIB PER CM. AMIODARONE GTT 0.5 MG/MIN THROUGH PIV. DAUGHTER AT BEDSIDE.
[2019-08-21 05:04] LABS: BASOPHILS 0.1 % (0-2); EOSINOPHILS 0.4 % (0-7); HEMATOCRIT 30.4 % (36.0-48.0); HEMOGLOBIN 9.4 g/dL (12-16); IMMATURE GRANULOCYTES 0.3 % (0-5); LYMPHOCYTES 10.2 % (15-50); MCH 29.7 pg (26.0-34.0); MCHC 30.9 g/dL (31.0-37.0); MCV 95.9 fL (80.0-100.0); MEAN PLATELET VOLUME 9.7 fL (7.4-10.4); MONOCYTES 13.3 % (2-11); NEUTROPHILS 75.7 % (40-80); PLATELET COUNT 211 10x3/uL (130-400); RBC 3.17 10x6/uL (4.00-5.40); RDW 14.1 % (11.5-14.5); WBC 7.4 10x3/uL (4.8-10.8)
[2019-08-21 05:28] LABS: INR 1.79 (0.85-1.17); PROTIME 20.2 SECONDS (11.6-15.0)
[2019-08-21 05:38] LABS: ANION GAP 11.8 mmol/L (8-16); CALCIUM 8.6 mg/dL (8.5-10.1); CARBON DIOXIDE 27.9 mmol/L (21.0-32.0); POTASSIUM - SERUM 3.7 mmol/L (3.5-5.1)
[2019-08-21 05:50] LABS: CREATININE - SERUM 1.4 mg/dL (0.6-1.3)
--- NOTE | 2019-08-21 06:50 | NUR ---
DR PUGH CALLED AND NOTIFIED OF PTS INCREASEING SOB AND HTN. NEW ORDERS RECIEVED.
--- NOTE | 2019-08-21 07:00 | NUR ---
RECEIVED BEDSIDE REPORT AND ASSUMED CARE OF PATIENT. PATIENT ALERT AND ORIENTED X 4, DAUGHTER AT BEDSIDE. PATIENT WITH 3-5 WORD DYSPNEA, SPO2 - 100% ON 4 LPM VIA NC. AUDIBLE WHEEZES NOTED WHEN ENTERING THE ROOM, ON ASCULTATION EXPIRATORY WHEEZES NOTED. CM - A-FIB RATE 100S. FONTENOT CATH IN PLACE WITH CLEAR YELLOW UOP NOTED. VSS. HEAD TO TOE ASSESSMENT COMPLETED.
--- NOTE | 2019-08-21 09:18 | NUR ---
PATIENT BREATHING MUCH EASIER NOW, NO AUDIBLE WHEEZES AND RR - 22, HR - 78.
--- NOTE | 2019-08-21 09:58 | NUR ---
08/26 FFP INFUSING, VSS.
--- NOTE | 2019-08-21 10:21 | NUR ---
08/26 UNIT OF FFP INFUSING PATIENT TOLERATING WELL. DAUGHTER AT BEDSIDE. VSS.
--- NOTE | 2019-08-21 10:58 | NUR ---
REASSESSMENT COMPLETETED. VSS. FFP INFUSING WITH NO S/S OF TRANSFUSION REACTION. PATEINT WITH EXPIRATORY WHEEZES, RR 18, NO SOB NOTED. CHG BATH GIVEN BY DAUGHTER ASSISTING PATIENT.
--- NOTE | 2019-08-21 11:00 | NUR ---
FFP INFUSION COMPLETE. VSS. NO S/S OF TRANSFUSION REACTION.
--- NOTE | 2019-08-21 11:37 | NUR ---
PREOP MEDS GIVEN PER MAR FOR DENTAL HYGIENE TEACHER.
--- NOTE | 2019-08-21 12:26 | NUR ---
PATIENT TO BUSINESS MANAGEMENT PROFESSOR. VSS.
--- NOTE | 2019-08-21 14:02 | NUR ---
PATIENT BACK FROM TANK TRUCK LOADER, RECEIVED TWO STENTS TO RCA AND ONE STENT TO LEFT MAIN, 6 FR EXOSEAL TO RIGHT GROIN WITH FEMSTOP IN PLACE, DISTAL PULSE PRESENT, FOOT PINK AND WARM. NO BLEEDING NOTED TO RIGHT GROIN. PATIENT ALERT AND ORIENTED X 4, IV TO RIGHT HAND INFUSING AMIODARONE AT 0.5 MG/HR AND NS AT 100 CC/HR. FONTENOT CATH WITH YELLOW UOP NOTED. CM - SB RATE OF 56. BBS WITH EXPIRATORY WHEEZE NOTED, FIO2 98% ON NC AT 4 LPM.
--- NOTE | 2019-08-21 14:15 | NUR ---
RIGHT GROIN SITE WITH NO BLLEDING OR HEMATOMA, FEM STOP IN PLACE. DP PULSE +1.
--- NOTE | 2019-08-21 14:38 | NUR ---
RIGHT GROIN WITH NO BLEEDING OR HEMATOMA, FEMSTOP IN PLACE, PRESSURE DECREASED. DP PULSE +1.
--- NOTE | 2019-08-21 14:45 | NUR ---
RIGHT GROIN SITE WITH NO BLEEDING OR HEMATOMA, FEMSTOP IN PLACE, PRESSURE DECREASED. DP PULSE RIGHT +1. VSS.
--- NOTE | 2019-08-21 14:58 | NUR ---
REASSESSMENT COMPLETED. VSS. RIGHT GROIN SITE WITH NO BLEEDING OR HEMATOMA, FEMSTOP IN PLACE, PRESSURE DECREASED. RIGHT DP PULSE +1.
--- NOTE | 2019-08-21 15:22 | NUR ---
RIGHT GROIN SITE WITH NO HEMATOMA OR BLEEDING NOTED. FEMSTOP PRESSURE RELEASED, IN PLACE WILL MONITOR. VSS.
--- NOTE | 2019-08-21 15:51 | NUR ---
VSS. RIGHT GROIN SITE WITH NO HEMATOMA OR BLEEDING NOTED. DP PULSE +2.
--- NOTE | 2019-08-21 16:23 | NUR ---
PATIENT RESTING QUIETLY, VSS. RIGHT GROIN SITE WITH NO BLEEDING AND NO HEMATOMA.
--- NOTE | 2019-08-21 19:15 | NUR ---
REPORT REC'D AND CARE ASSUMED, REC'D PT RESTING IN BED ON O2 @ 4LITERS , AWAKE, ALERT, AND ORIENTED, DAUGHTERS AT BS, RIGHT FOREARM PIV WITH NS @ 100CC/HR, LEFT HAND PIV PATENT SALINE LOCKED, RIGHT GROIN DRSG CDI, NO BLEEDING OR HEMATOMA, SMALL BRUISE NOTED, PPP, PT REPORTS PAIN PILL "HELPED", DENIES NEEDS, SR UP X 2, CALL LIGHT IN REACH.
--- NOTE | 2019-08-21 20:50 | NUR ---
EVENING MEDS GIVEN ORDERED, PT UNCOMFORTABLE IN BED, PT ASSISTED TO REPOSITION ONTO LEFT SIDE SUPPORTED WITH PILLOW, PT DENIES PAIN OR OTHER NEEDS.
--- NOTE | 2019-08-21 23:00 | NUR ---
REASSESSMENT COMPLETED, PT RESTING WITH EYES CLOSED, RESP EVEN AND UNLABORED, VSS, RIGHT GROIN DRSG CDI, NO BLEEDING OR HEMATOMA, WILL CONT TO MONITOR CLOSELY FOR CHANGES.
--- NOTE | 2019-08-21 23:45 | NUR ---
PT ASSISTED UP TO BSC, CALL LIGHT IN REACH.
[2019-08-22] VITALS (10 sets, daily range): BP systolic 110–192; BP diastolic 39–113
--- NOTE | 2019-08-22 00:05 | NUR ---
PT ASSISTED BACK TO BED AND UP IN BED FOR COMFORT, PT COMPLAINS OF "HURT ALL OVER", NORCO PROVIDED AT THIS TIME, RIGHT HAND PIV LEAKING AROUND SITE, DC'D WITH CATH TIP INTACT, PARTIAL LINEN CHANGE PROVIDED, PT DENIES FURTHER NEEDS, DAUGHTER REMAINS AT BS.
--- NOTE | 2019-08-22 02:30 | NUR ---
NO CHANGES IN STATUS, VSS, PT RESTING IN BED EYES CLOSED, RESP EVEN AND UNLABORED.
--- NOTE | 2019-08-22 04:00 | NUR ---
PT REPOSITIONED UP IN BED, PT REQUESTING COFFEE, COFFEE PROVIDED, DAUGHTERS AT BS, PT DENIES FURTHER NEEDS.
--- NOTE | 2019-08-22 04:45 | NUR ---
PT ASSISTED OVER TO BSC, PT STATES " I THINK I NEED TO HAVE A BM", CALL LIGHT IN REACH.
--- NOTE | 2019-08-22 05:05 | NUR ---
PT ASSISTED BACK TO BED, DENIES DIZZINESS WITH RELOCATION, RIGHT GROIN DRSG CDI, NO BLEEDING OR HEMATOMA.
--- NOTE | 2019-08-22 09:43 | NUR ---
PT UP TO CHAIR FOR BREAKFAST. FAMILY AT BS. RT GROIN DSNG WITH SM AMT BLOODY DRAINAGE. DSNG CHANGED. NO ACTIVE BLEEDING NOTED. NO HEMATOMA.
--- NOTE | 2019-08-22 10:56 | NUR ---
DISCHARGED BY DR PUGH-PT ABLE TO STATE FOLLOW UP;APPT IN 2ND WEEK OF SEPTEMBER=L AC REMOVED WITH TIP INTACT-FONTENOT CATH REMOVED PER PROTOCOL-O2 TURNED OFF AND SAT REMAINS ON TO MONITOR SAME-DAUGHTER AT BEDSIDE DISCHARGE INSTRUCTION GIVEN IF PT DOES NOT URINATE BY 6;00 PM TO TAKE TO NEAREST ER FOR BLADDER SCAN OR POSSIBLE RECATHERIZAION-SR ON MONITOR-R GROIN SOFT TO TOUCH-ASSISTED TO BSC CHAIR FOR PT STATED BM-NOTED SLIGHT BALANCE ISSUE-STATED HAS WALKER AT HOME AND USES IT
--- NOTE | 2019-08-22 11:44 | NUR ---
PT DC WITH HER DAUGHTERS. DC INSTRUCTIONS GIVEN AND MEDS CALLED TO PHARMACY. DAUGHTERS VERBILIZE UNDERSTANDING OF DC INSTRUCTIONS.
--- NOTE | 2019-08-24 10:05 | MORECARE ---
CASE MANAGEMENT DISCHARGE SUMMARY PATIENT: RORO SAMAYOA UNIT: [id number] ADM DATE: 08/20/19 AGE: 84 : 36 SEX: F ROOM/BED: D.CV03 AUTHOR: COTY,DOC PHYSICIAN: REFERRING PHYSICIAN: RACHELL PUGH MD DATE OF SERVICE: 08/24/19 Discharge Plan Patient Name: RORO SAMAYOA Facility: [facility]:[place] : 1935 Planned Disposition: Home Anticipated Discharge Date: 08/24/19 Discharge Date: 08/22/2019 Expected LOS: 4 Initial Reviewer: [email or web address] Initial Review Date: 08/20/2019 Generated: 08/24/19 11:05 am DCP- Discharge Planning Updated by [email or web address]: Desi Gonzalez on 08/20/19 11:[address] DC PLAN: Return home alone w/ resumption of [facility]. ANTICIPATED DC NEEDS: Resumption of [facility]. CM met with patient to complete initial dc planning assessment. CM educated patient on the CM role and verbal consent given by patient to complete assessment. CM verified patient's address, phone number, and emergency contact phone numbers. Patient lives at home alone. Patient currently has [facility] and wishes to resume at discharge. JULIO CÉSAR form signed by patient for resumption of [facility]. Signed form placed in chart and signed form given to patient. At discharge patient plans to return and feels this is a safe discharge. Patient denied further known discharge needs at this time. Transportation provider at discharge will be her daughter. CM will continue to follow and will assist as needed with dc plans/needs. Desi Gonzalez RN, [facility] DCPIA - Discharge Planning Initial Assessment Updated by [email or web address]: Desi Gonzalez on 08/20/19 12:52 pm * Is the patient Alert and Oriented? Yes * How many steps to enter\exit or inside your home? * PCP Dr. White in [place] * Pharmacy [facility] [place] * Preadmission Environment Home Alone * ADLs Independent * Equipment Cane Glucometer Rolling Walker * Other Equipment BP machine INR Machine * Verbal permission to speak to the caregivers and representatives has been obtained from the patient. Yes * Community resources currently utilized Home Health * Please name any agencies selected above. [facility] [place] * Additional services required to return to the preadmission environment? No * Can the patient safely return to the preadmission environment? Yes * Has this patient been hospitalized within the prior 30 days at any hospital? No Last DP export: 08/20/19 11:55 Patient Name: RORO SAMAYOA Page [id number] at 1005 All edits/amendments must be made on the electronic document DICTATION DATE: 08/24/191004 DIRECTOR OF TEENAGE ACTIVITIES: MIGUELITO 08/24/19 100 RPT#: [id number] DC DATE:08/22/19 STATUS: DIS IN [facility] [address] [place] [address] END OF REPORT
== END 2019-08-22 11:46 | disposition home or self-care (01) | DRG 247 ==
LOC: D.ER 09:57 → D.CVICU 11:31 → D.M2 11:31 → D.ICU 08-21 00:34 → D.CVICU 08-21 01:39
PROVIDERS: Family Medicine; ADMIT Internal Medicine Interventional Cardiology; ATTEND Internal Medicine Interventional Cardiology
PROC: B2151ZZ Fluoroscopy of Left Heart using Low Osmolar Contrast (ICD-10-PCS; 2019-08-21)
PROC: 4A023N7 Measurement of Cardiac Sampling and Pressure, Left Heart, Percutaneous Approach (ICD-10-PCS; 2019-08-21)
PROC: 027136Z Dilation of Coronary Artery, Two Arteries with Three Drug-eluting Intraluminal Devices, Percutaneous Approach (ICD-10-PCS; principal; 2019-08-21 10:30)
PROC: B240ZZ3 Ultrasonography of Single Coronary Artery, Intravascular (ICD-10-PCS; 2019-08-21 10:30)
PROC: B2111ZZ Fluoroscopy of Multiple Coronary Arteries using Low Osmolar Contrast (ICD-10-PCS; 2019-08-21 10:30)
DX: I21.4 Non-ST elevation (NSTEMI) myocardial infarction (principal); I48.0 Paroxysmal atrial fibrillation; Z95.2 Presence of prosthetic heart valve